=== PATIENT | male | born 1970 | race Caucasian/White ===

== ENCOUNTER 2017-05-19 10:08 | Emergency (ER) | payer OTHER ==
[2017-05-19 10:23] VITALS: TEMP 98.4
--- NOTE | 2017-05-19 11:15 | CPEKG ---
Heart Rate: 88 RR Interval: 682 P-R Interval: 128 QRSD Interval: 108 QT Interval: 368 QTC Interval: 446 P Danby: 33 QRS Danby: 11 T Wave Danby: 23 EKG Severity - NORMAL ECG - EKG Impression: SINUS RHYTHM Electronically Signed By: Michael Beasley 21-May-2017 05:33:32
--- NOTE | 2017-05-19 13:27 | EDPHY ---
H & P Smoking Status: Never smoked Time Seen by Provider: 05/19/17 12:01 HPI/ROS: CHIEF COMPLAINT: Head injury, syncope HISTORY OF PRESENT ILLNESS: 46-year-old male presents to the emergency department after having a syncopal episode yesterday at 9:00 a.m.. The patient states that he was at work and was feeling dizzy and then fell and hit the left posterior aspect of his scalp. He he states "I was out for 10 minutes." He then states that he kept working. He has a mild left posterior headache. He has no chest pain or difficulty breathing. No abdominal pain. No vomiting or diarrhea. No visual changes. REVIEW OF SYSTEMS: Constitutional: No fever, no chills. Eyes: No double or blurry vision. ENT: No sore throat. Respiratory: No cough, no shortness of breath. Cardiac: No chest pain. Gastrointestinal: No abdominal pain, vomiting or diarrhea. Genitourinary: No dysuria. Musculoskeletal: No neck or back pain. Skin: No rashes. Neurological: headache. (Tiffany Bell) Past Medical/Surgical History: Negative (Tiffany Bell) Social History: Single (Tiffany Bell) Physical Exam: General Appearance: Alert, no distress. Mentating normally and answering questions appropriately. Patient has tender, swollen area to the left posterior parietal area of the scalp. No abrasion or puncture wound noted. Eyes: Pupils equal and round. Extraocular motions are all intact. ENT: Mouth: Mucous membranes moist. Respiratory: No wheezing, rhonchi, or rales, lungs are clear to auscultation. Cardiovascular: Regular rate and rhythm. Gastrointestinal: Abdomen is soft and nontender, no masses, no rebound or guarding, bowel sounds normal. Neurological: Alert and oriented x 3, cranial nerves II through XII grossly intact Skin: Warm and dry, no rashes. Musculoskeletal: Nontender to palpate along the cervical, thoracic or lumbar spine. Neck is supple. Extremities: Full range of motion and no peripheral edema. Psychiatric: Patient is oriented X 3, there is no agitation. (Tiffany Bell) Constitutional: Initial Vital Signs Temperature (C) 36.9 C 05/19/17 10:20 Heart Rate 96 05/19/17 10:20 Respiratory Rate 18 05/19/17 10:20 Blood Pressure 151/94 H 05/19/17 10:20 O2 Sat (%) 94 05/19/17 10:20 O2 Delivery Mode Room Air Allergies/Adverse Reactions: No Known Allergies Allergy (Unverified 05/19/17 10:20) Home Medications: Medication Instructions Recorded NK [No Known Home Meds] 05/19/17 Medical Decision Making - Diagnostics Imaging: Discussed imaging studies w/ car ferry master Radiologist ED Course/Re-evaluation: 46-year-old male presents to the emergency department by private vehicle after having syncopal episode at work yesterday morning and hitting his head. I discussed the pros and cons of CT imaging of his brain including radiation exposure the patient agrees with CT scan. CT scan was normal. Laboratory studies including CBC chemistry and troponin were all negative. EKG was unremarkable. Patient feels comfortable being discharged home. He feels comfortable going back to work. I gave him closed-head injury precautions. I encouraged to have close follow-up with his primary care provider given syncopal episode. Patient verbalized understanding and agreed. (Tiffany Bell) Differential Diagnosis: Head injury including but not limited to concussion, skull fracture, intraparenchymal contusion, subarachnoid, subdural and epidural hematoma. Syncope including but not limited to vasovagal syncope, arrhythmia, dehydration , and blood loss. (Tiffany Bell) Other Provider: The patient was evaluated and managed by the Physician Shellfish Sorter. My co- signature indicates that I have reviewed this chart and I agree with the findings and plan of care as documented. I am the secondary supervising physician. (Melida Eng) - Data Points Laboratory Results: Laboratory Results 05/19/17 13:20 05/19/17 13:20 Departure - Departure Disposition: Home, Routine, Self-Care Clinical Impression: Syncope, Head injury Instructions: Syncope (ED), Concussion (ED), Head Injury (ED) Additional Instructions: Return to the emergency department if he notices any signs or symptoms of infection such as redness, swelling, increased pain, fever, purulent drainage. Referrals: Margarita Sinclair MD [Medical Doctor] - 2-3 days, call for appt. (Primary care provider decorator consultant)
[2017-05-19 13:33] LABS: % IMMATURE GRANULYOCYTES 0.1 % (0.0-1.1); ABSOLUTE IMMATURE GRANULOCYTES 0.01 10^3/uL (0.00-0.10); ADD DIFF? NO; ADD MORPH? NO; ADD SCAN? NO; ATYPICAL LYMPHOCYTE FLAG 10 (0-99); FRAGMENT RBC FLAG 0 (0-99); HEMATOCRIT 47.8 % (40.0-51.0); HEMOGLOBIN 16.9 g/dL (13.7-17.5); LEFT SHIFT FLG 0 (0-99); LIPEMIA HEMOLYSIS FLAG 90 (0-99); MEAN CELL HEMOGLOBIN 30.9 pg (27.9-34.1); MEAN CELL HEMOGLOBIN CONCENTR. 35.4 g/dL (32.4-36.7); MEAN CELL VOLUME 87.4 fL (81.5-99.8); MEAN PLATELET VOLUME 9.8 fL (8.7-11.7); PLATELET CLUMPS FLAG 0 (0-99); PLATELET COUNT 277 10^3/uL (150-400); RED BLOOD CELL COUNT 5.47 10^6/uL (4.40-6.38); RED CELL DISTRIBUTION WIDTH 13.3 % (11.5-15.2)
[2017-05-19 13:45] VITALS: RESP 16
[2017-05-19 13:52] LABS: ANION GAP 14 mEq/L (8-16); CALCIUM 9.6 mg/dL (8.5-10.4); CARBON DIOXIDE 23 mEq/l (22-31); CHLORIDE 105 mEq/L (97-110); CREATININE 0.8 mg/dL (0.7-1.3); GLOMERULAR FILTRATION RATE > 60; GLUCOSE 97 mg/dL (70-100); POTASSIUM 4.7 mEq/L (3.5-5.2); SODIUM 142 mEq/L (134-144)
[2017-05-19 16:15] VITALS: BP 131/90; PULSE 89; O2SAT 98
== END 2017-05-19 16:10 | disposition home or self-care (01) ==
DX: S09.90XA Unspecified injury of head, initial encounter (principal); R55 Syncope and collapse; W01.198A Fall on same level from slipping, tripping and stumbling with subsequent striking against other object, initial encounter